=== PATIENT | female | born 1935 | race Caucasian/White ===

== ENCOUNTER 2017-01-29 13:10 | Emergency (ER) | payer OTHER ==
[2017-01-29] MEDS ORDERED: ASPIRIN PO STA (13:13)
--- NOTE | 2017-01-29 13:23 | EKG Report ---
Test Performed on : 01/29/2017 1:16:37 PM Test Reason : CHEST PAIN Blood Pressure : / mmHG Vent. Rate : 068 BPM Atrial Rate : 068 BPM P-R Int : 204 ms QRS Dur : 102 ms QT Int : 442 ms P-R-T Axes : 059 -14 063 degrees QTc Int : 469 ms Normal sinus rhythm. Normal ECG No previous ECGs available Unconfirmed Result
[2017-01-29 13:32] LABS: MANUAL DIFF NEEDED? NO
[2017-01-29 13:33] LABS: BASO% 0.5 % (0.0-0.8); EOS% 1.7 % (0.0-10.0); HEMATOCRIT 31.3 % (37.0-47.0); HEMOGLOBIN 10.3 g/dL (12.0-16.0); IMM GRAN# 0.02 X1000 (0.0-0.04); IMM GRAN% 0.3 % (0.0-0.5); LYMPH# 1.73 X1000 (1.2-3.4); LYMPH% 29.7 % (20.5-51.1); MCH 30.7 PG (27-31); MCHC 32.9 g/dL (33-37); MCV 93.4 FL (81-99); MONO# 0.44 X1000 (0.11-0.59); MONO% 7.5 % (1.7-9.3); MPV 8.9 FL (7.4-10.4); NEUT% 60.3 % (42.2-75.2); PLT 176 X1000 (130-400); RBC 3.35 XMIL (4.2-5.4)
[2017-01-29] MEDS ORDERED: NS 1,000 ML IV ONE (13:40)
--- NOTE | 2017-01-29 13:40 | PROVIDER DOCUMENTATION ---
HPI-General Adult - General Chief Complaint: B/P Problems Stated Complaint: pain between shoulder blades Time Seen by Provider: 01/29/17 13:12 Source: patient Allergies/Adverse Reactions: Patient Allergies Allergy/AdvReac Type Severity Reaction Status Date / Time No Known Allergies Allergy Verified 01/29/17 13:25 - History of Present Illness -Gen Adult Nature of Presenting Problems: patient is a 81 y/o F that presents to the ER with pain in between shoulders that began [employer]. patient was at [employer] playing [employer]s when pain hit. Patient had no chest pain, shortness of breath, n/v, or diaphoresis. patient's systolic BP was in the 80s on EMS arrival Location of Pain/Injury: reports: back (between shoulder blades) Pain Radiation: reports: no radiation Quality of Pain: reports: aching Severity: reports: moderate Onset/Duration: reports: abrupt, just prior to arrival Timing: reports: gone now Context/Activities at Onset: reports: light activity Modifying Factors: improves with: nothing Associated Symptoms: reports: back/neck pain. denies: arm pain, chest pain, cough, diarrhea, dizziness, fever/chills, genitourinary problems, heartburn, nausea, shortness of breath, vomiting Similar Symptoms Previously?: No Recently seen or treated by another doctor?: No Review of Systems - Adult - REVIEW OF SYSTEMS - ADULT Constitutional: denies: chills, fever Eyes: denies: decreased vision, blurred vision, double vision Ears, Nose, Mouth & Throat: denies: ear pain, sinus problem, nose pain, throat pain, throat swelling Cardiovascular: denies: chest pain, orthopnea, palpitations, syncope Respiratory: denies: cough, shortness of breath, wheezing Gastrointestinal: denies: abdominal pain, diarrhea, nausea, vomiting Genitourinary: reports: no symptoms reported Musculoskeletal: reports: back pain. denies: joint pain, neck pain Integumentary: reports: no symptoms reported Neurological: reports: no symptoms reported Psychiatric: reports: no symptoms reported Endocrine: reports: no symptoms reported Hematologic/Lymphatic: reports: no symptoms reported Allergic/Immunologic: reports: no symptoms reported All Other Systems: Reviewed and Negative Past History - Adult - PAST MEDICAL HISTORY-ADULT Review of Records: reports: Old Records Reviewed, Nursing Assessment Review, Medications Reviewed Cardiovascular: reports: HTN Neurological: reports: Seizures/Epilepsy Endocrine/Immune: reports: thyroid disorder - PRIOR SURGERIES/PROCEDURES Surgical/Procedure History: reports: hysterectomy, other (thyroid) - IMMUNIZATION STATUS Childhood Immunizations: See Nurse Assessment Flu Vaccine: See Nurse Assessment - FAMILY HISTORY Family History: reviewed, not pertinent - SOCIAL HISTORY Smoking: cigarettes, less than 1 pack/day Living Situation: family Physical Exam-General - PHYSICAL EXAM-ADULT Initial Vital Signs Reviewed: Yes - CONSTITUTIONAL General Appearance: alert, no apparent distress - EYES Eyes: PERRL/EOMI, pink conjunctivae - HEAD, EARS, NOSE, MOUTH & THROAT HENMT: normocephalic/atraumatic, moist mucous membranes, normal ENT inspection - NECK Neck: non-tender, full range of motion, normal inspection - RESPIRATORY Respiratory: chest non-tender, lungs clear, normal breath sounds, no respiratory distress, no accessory muscle use - CARDIOVASCULAR Cardiovascular: regular rate, rhythm, no edema, no murmur - GASTROINTESTINAL (ABDOMEN) Abdominal Exam: normal bowel sounds, non tender, soft - MUSCULOSKELETAL Back Exam: no CVA tenderness, no vertebral tenderness Extremity: normal range of motion, non-tender, normal inspection, no pedal edema , no calf tenderness, normal capillary refill, pelvis stable - SKIN Integumentary: normal color, warm/dry - NEUROLOGIC Neurologic: grossly normal, no motor/sensory deficits - PSYCHIATRIC Psych/Mental Status: normal mood/affect, normal thought content, normal thought process, oriented x 3 Progress - PLAN OF CARE/RESULTS Progress/Plan/Lab Results: plan of care-cardiac work up 1540-second set of cardiacs ordered Vital Signs Temp Pulse Resp BP Pulse Ox 01/29/17 15:21 62 17 165/81 98 01/29/17 14:55 61 22 136/74 98 01/29/17 14:11 68 18 139/74 99 01/29/17 13:21 98.7 F 71 18 153/106 98 No Known Allergies Allergy (Verified 01/29/17 13:25) Laboratory 01/29/17 01/29/17 01/29/17 15:50 15:50 15:12 WBC RBC Hgb Hct MCV MCH MCHC RDW Std Deviation Plt Count MPV Immature Gran % (Auto) Neut % (Auto) Lymph % (Auto) [place] % (Auto) Eos % (Auto) Baso % (Auto) Immature Gran # (Auto) Neut # (Auto) Lymph # (Auto) [place] # (Auto) Eos # (Auto) Baso # (Auto) PT INR APTT (Factor Assay) D-Dimer Sodium Potassium Chloride Carbon Dioxide Anion Gap BUN Creatinine Estimated GFR/1.73 m2 BUN/Creatinine Ratio Glucose Calculated Osmolality Calcium Magnesium Total Bilirubin AST ALT Alkaline Phosphatase Creatine Kinase 45 Troponin T < 0.010 Gap-G-Lylvuarrrhp Pept Total Protein Albumin Globulin Albumin/Globulin Ratio Urine Source CLEAN CATCH Urine Color YELLOW Urine Clarity CLEAR Urine pH 5.0 Ur Specific [place] 1.015 Urine Protein TRACE A Urine Ketones NEGATIVE Urine Blood NEGATIVE Urine Nitrite NEGATIVE Urine Bilirubin NEGATIVE Urine Urobilinogen NORMAL Urine Microscopic RBC <10 Urine WBC 2+ A Urine Microscopic WBC 10-20 A Ur Epithelial Cells >10 A Urine Glucose NEGATIVE 01/29/17 01/29/17 01/29/17 13:30 13:30 13:30 WBC 5.83 RBC 3.35 L Hgb 10.3 L Hct 31.3 L MCV 93.4 MCH 30.7 MCHC 32.9 L RDW Std Deviation 12.3 Plt Count 176 MPV 8.9 Immature Gran % (Auto) 0.3 Neut % (Auto) 60.3 Lymph % (Auto) 29.7 [place] % (Auto) 7.5 Eos % (Auto) 1.7 Baso % (Auto) 0.5 Immature Gran # (Auto) 0.02 Neut # (Auto) 3.51 Lymph # (Auto) 1.73 [place] # (Auto) 0.44 Eos # (Auto) 0.10 Baso # (Auto) 0.03 PT 13.6 INR 1.01 APTT (Factor Assay) 30.1 D-Dimer 0.27 Sodium Potassium Chloride Carbon Dioxide Anion Gap BUN Creatinine Estimated GFR/1.73 m2 BUN/Creatinine Ratio Glucose Calculated Osmolality Calcium Magnesium Total Bilirubin AST ALT Alkaline Phosphatase Creatine Kinase Troponin T Ukf-B-Wapttpjvaxw Pept 194 Total Protein Albumin Globulin Albumin/Globulin Ratio Urine Source Urine Color Urine Clarity Urine pH Ur Specific [place] Urine Protein Urine Ketones Urine Blood Urine Nitrite Urine Bilirubin Urine Urobilinogen Urine Microscopic RBC Urine WBC Urine Microscopic WBC Ur Epithelial Cells Urine Glucose 01/29/17 01/29/17 13:30 13:30 WBC RBC Hgb Hct MCV MCH MCHC RDW Std Deviation Plt Count MPV Immature Gran % (Auto) Neut % (Auto) Lymph % (Auto) [place] % (Auto) Eos % (Auto) Baso % (Auto) Immature Gran # (Auto) Neut # (Auto) Lymph # (Auto) [place] # (Auto) Eos # (Auto) Baso # (Auto) PT INR APTT (Factor Assay) D-Dimer Sodium 135 L Potassium 3.8 Chloride 98 Carbon Dioxide 24 L Anion Gap 13 BUN 16 Creatinine 1.3 H Estimated GFR/1.73 m2 40 BUN/Creatinine Ratio 12 Glucose 204 H Calculated Osmolality 277 Calcium 8.7 L Magnesium 2.0 Total Bilirubin 0.20 AST 19 ALT 13 Alkaline Phosphatase 159 H Creatine Kinase 47 Troponin T < 0.010 Isv-W-Avxwwowqhkx Pept Total Protein 6.7 Albumin 4.0 Globulin 3.0 Albumin/Globulin Ratio 1.0 Urine Source Urine Color Urine Clarity Urine pH Ur Specific [place] Urine Protein Urine Ketones Urine Blood Urine Nitrite Urine Bilirubin Urine Urobilinogen Urine Microscopic RBC Urine WBC Urine Microscopic WBC Ur Epithelial Cells Urine Glucose Orders Category Date Time Status Cardiac Monitoring DIRECTED Care 01/29/17 13:13 Active Oxygen Therapy- ED Nursing DIRECTED Care 01/29/17 13:13 Active Saline Loc NOW Care 01/29/17 13:13 Active CHEST-2 VIEWS [RAD] Stat Exams 01/29/17 13:13 Draft CBC WITH ELECTRONIC DIFF [HEME] Stat Lab 01/29/17 13:30 Completed CK PROFILE [SP CHEM] Stat Lab 01/29/17 13:30 Completed CK PROFILE [SP CHEM] Stat Lab 01/29/17 15:50 Completed COMPREHENSIVE METABOLIC PANEL [CHEM] Stat Lab 01/29/17 13:30 Completed D-DIMER PL [COAG] Stat Lab 01/29/17 13:30 Completed MAGNESIUM [CHEM] Stat Lab 01/29/17 13:30 Completed PRO B-NATRIURETIC PEPTIDE Stat Lab 01/29/17 13:30 Completed PROTIME WITH INR PL [COAG] Stat Lab 01/29/17 13:[address] [COAG] Stat Lab 01/29/17 13:30 Completed TROPONIN T Stat Lab 01/29/17 13:30 Completed TROPONIN T Stat Lab 01/29/17 15:50 Completed UA [URINALYSIS PL W/POSS RFLX CULT] [URINALYSIS] Stat Lab 01/29/17 15:12 Completed 0.9% Sodium Chloride Inj [Ns] 1,000 ml Med 01/29/17 13:40 Active IV 250 mls/hr Aspirin Med 01/29/17 13:13 Discontinued 325 mg PO STAT STA CefTRIAXONE 1 GM/NS [Rocephin 1 gm/Ns] 50 ml Med 01/29/17 16:32 Active IV NOW EKG [EKG] Stat Ther 01/29/17 13:13 Draft pt will be d/c home f/u with pcp, rx given, pt was clinically stable, understood instructions and results - EKG 1 Time of EKG reading by physician:: 13:16 EKG Read and Signed by:: Neema Terrell EKG Interpretation (*Must complete 3 of following elements*): Normal Rate: 68 Rhythm: NSR [place]: normal QRS: normal LA Interval: normal ST Wave: normal - XRAY 1 XRAY Study: Chest Impression: Abnormal XRAY Interpretation: boderline prominent heart Departure - Departure Time of Disposition Order: 16:34 DIAGNOSIS: UTI (urinary tract infection) Qualifiers: Urinary tract infection type: acute cystitis Hematuria presence: without hematuria Qualified Code(s): N30.00 - Acute cystitis without hematuria Disposition: HOME 01 Certified Medical Emergency: Emergent Condition: Stable Additional Instructions: ED Follow Up Instructions: You have been treated by a care provider in the Emergency Department. These instructions are being provided to you so you can have an understanding of how to care for yourself upon discharge. Upon discharge from the Emergency Department, you are responsible for making arrangements for follow-up care by a physician of your choice. Take all prescribed medications as directed. Return to the Emergency Department immediately for any new or worsening symptoms. You may call the Physician Referral phone number at [phone] to obtain a list of Physicians who are taking new patients. Referrals: Marjorie Terry MD [Primary Care Provider] - Call for Appoint. 1-2days Instructions: Urinary Tract Infection, Sbtw-xi-Ewgq Attestation - Scribe Verification/Attestation Scribe:: Parviz Arevalo Acting as Scribe for:: Neema Terrell Scribe documention review:: This chart was documented by a scribe and accurately reflects the service the provider performed and the decisions made by the provider. Physician Attestation - Physician Attestation I, the provider, attest to the following statement:: Neema Terrell Physician documentation Attestation:: This documentation recorded by the scribe accurately reflects the service I personally performed and the decisions made by me.
[2017-01-29 13:54] LABS: CALCIUM 8.7 mg/dL (8.8-10.2); POTASSIUM 3.8 mmol/L (3.5-5.1); TOTAL BILIRUBIN 0.2 mg/dL (0.20-1.00); TOTAL PROTEIN 6.7 g/dL (6.3-8.3)
[2017-01-29 14:01] LABS: INR 1.01 (0.86-1.15); PROTIME 13.6 Seconds (12.1-15.5)
[2017-01-29 14:02] LABS: PTT PL 30.1 Seconds (22.6-43.9)
--- NOTE | 2017-01-29 14:23 | Diag Imaging Result Document ---
PROCEDURE NAME: CHEST-2 VIEWS - 01/29/2017 PA AND LATERAL RADIOGRAPHS OF THE CHEST: COMPARISON: 12/12/2010. FINDINGS: The lungs are grossly clear. There is no definite pleural fluid collection. The heart is ulvbdwhtkr-ue-vxuwms prominent, stable. Central vasculature is unremarkable. IMPRESSION: Btxeejsgxg-zg-xmvemz prominent heart. No definite acute pathology.
[2017-01-29 15:24] LABS: URINE CULTURE PL NEEDED? NO; URINE SOURCE CLEAN CATCH
[2017-01-29 15:35] LABS: BILIRUBIN URINE NEGATIVE (NEGATIVE); BLOOD URINE NEGATIVE (NEGATIVE); CLARITY CLEAR (CLEAR); COLOR YELLOW; GLUCOSE URINE NEGATIVE (NEGATIVE); LEUKOCYTES URINE 2+ (NEGATIVE); NITRITE URINE NEGATIVE (NEGATIVE); PROTEIN URINE TRACE mg/dL (NEGATIVE); SP GRAVITY URINE 1.015; UROBILINOGEN URINE NORMAL
[2017-01-29 15:45] LABS: URINE EPITHELIAL CELLS >10 /HPF (<10); URINE RBC <10 /HPF (<10)
[2017-01-29] MEDS ORDERED: ROCEPHIN 1 GM/NS 50 ML IV ONE (16:32)
[2017-01-29] MEDS ORDERED: LEVAQUIN PO ONE (16:52)
[2017-01-29 17:39] VITALS: BP 145/80
== END 2017-01-29 17:38 | disposition home or self-care (01) ==
LOC: P.ED 13:10
DX: N30.00 Acute cystitis without hematuria (principal); M54.6 Pain in thoracic spine; I10 Essential (primary) hypertension; F17.210 Nicotine dependence, cigarettes, uncomplicated
CPT/HCPCS: 71020; 80053; 81001; 82550; 83735; 83880; 84484; 85025; 85379; 85610; 85730; 93005; J0696; J7030

== ENCOUNTER 2017-08-18 16:25 | Observation (INO) ==
[2017-08-18] MEDS ORDERED: APRESOLINE IV ONE (17:46)
[2017-08-18] MEDS ORDERED: APRESOLINE ONE (17:53)
[2017-08-18 18:01] LABS: INR 1.02; PROTIME 10.7 Seconds (9.2-11.7)
[2017-08-18 18:14] LABS: ALBUMIN 4.6 g/dL (3.5-5.0); BASO% 0.2 % (0.0-0.8); HEMATOCRIT 35.3 % (37.0-47.0); HEMOGLOBIN 11.7 g/dL (12.0-16.0); IMM GRAN# 0.02 X1000 (0.0-0.04); IMM GRAN% 0.2 % (0.0-0.5); LYMPH# 0.62 X1000 (1.2-3.4); LYMPH% 6.7 % (20.5-51.1); MAGNESIUM 2.1 mg/dL (1.5-2.7); MANUAL DIFF NEEDED? YES; MCHC 33.1 g/dL (33-37); MCV 93.4 FL (81-99); MONO# 0.17 X1000 (0.11-0.59); MONO% 1.8 % (1.7-9.3); MPV 9.7 FL (7.4-10.4); NEUT% 91.1 % (42.2-75.2); PLT 203 X1000 (130-400); POTASSIUM 4.9 mmol/L (3.5-5.1); RBC 3.78 XMIL (4.2-5.4); TOTAL BILIRUBIN 0.16 mg/dL (0.20-1.00); TOTAL PROTEIN 7.8 g/dL (6.3-8.3)
--- NOTE | 2017-08-18 18:21 | Diag Imaging Result Doc PS360 ---
CHEST-PORTABLE - 08/18/2017 INDICATION: stridor intraoperatively TECHNIQUE: COMPARISON: 01/29/2017 FINDINGS: Lung volumes are moderately low with bibasilar crowding. No focal infiltrates, pneumothorax, or pleural effusion. Heart size is top normal. IMPRESSION: Low lung volumes but otherwise no acute disease. Electronically signed by Sonu Santos 08/18/2017 6:19 PM
[2017-08-18 18:44] LABS: LYMPHS 2 % (21-51)
--- NOTE | 2017-08-18 18:56 | HISTORY AND PHYSICAL ---
ENT PHYSICIAN: Dr. Noah Cheema ANESTHESIOLOGIST: Dr. Perez PRIMARY CARE PROVIDER: Dr. Terry CHIEF COMPLAINT: Intraoperative stridor. HISTORY OF PRESENT ILLNESS: Mrs. Schmitz is an 82-year-old, female, with a history of seizures, hypertension and thyroid cancer, who comes to our facility today after she had intraoperative stridor during [facility]. Per Dr. Perez, the anesthesiologist, the patient, after she was extubated, had stridor which was broken with racemic epi, and the patient has been stable since. 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 She came to the ICU at our facility for close observation. She is currently saturating 100% on open face mask, and she states that her throat is a little bit sore, but her airway is clear and she is oxygenating well. Her blood pressure, however, is noted to be 229/87, which we are treating with IV hydralazine. She denies any other complaints at this time. She is going to be admitted for observation status. PAST MEDICAL HISTORY: 1. Seizure disorder. 2. Hypertension. 3. Thyroid cancer, status post thyroidectomy. 4. Arthritis. 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 SOCIAL HISTORY: No tobacco, alcohol, or drug use. Daughter is at the bedside. FAMILY HISTORY: Noncontributory. REVIEW OF SYSTEMS: Fourteen-point review of systems obtained and found to be negative, with the exception of the HPI. HOME MEDICATIONS: Currently being compiled. ALLERGIES: No known drug allergies. PHYSICAL EXAMINATION: VITAL SIGNS: Blood pressure is 229/86, heart rate 82, respiratory rate 16, O2 saturation 100% on 50% open face mask. GENERAL: This is an elderly, female, lying in hospital bed. No acute distress. HEENT: Head is normocephalic. She has an incision with sutures clean, dry and intact to the right nostril and left year. Otherwise, head is atraumatic. Pupils are equal, round, reactive to light. Oral mucosa is moist. Trachea is midline. There is no stridor. CHEST: Clear to auscultation bilaterally. CARDIOVASCULAR: Regular rate and rhythm. S1 and S2 are noted. GASTROINTESTINAL: Soft, nondistended, nontender. Bowel sounds positive. EXTREMITIES: No edema, clubbing, or cyanosis. Pulses palpable bilaterally. DIAGNOSTIC DATA: Pending. ASSESSMENT/PLAN: 1. Intraoperative stridor: We will continue with DuoNeb and IV steroids. We will also have racemic epi at the bedside, if necessary. We will monitor her airway status closely. 2. Hypertension: We will add IV hydralazine now and continue any antihypertensives and check labs. Chest x-ray is also included in that. 3. Seizure disorder. The patient is on Dilantin. Will continue that and check levels. 4. Hypothyroidism. We will check TSH. Continue her home medications. 5. Further recommendations to follow. We will add DVT prophylaxis with SCDs and TEDs, given her recent surgery. Patient seen and examined by me face to face, all the lab work, vitals signs were reviewed, Patient has a past medical history of thyroidectomy and vocal cord lesion, at the moment of my physical exam she was feeling better, probably I will send her home in the morning, I agree with the assessment and plan, Manuel Israel MD Dictated by VALENTIN Meehan for Manuel Holden MD cc: VALENTIN Meehan MD Benjamin W. Light, MD Adnan A. Seljuki, MD [facility]
[2017-08-18] MEDS ORDERED: DUONEB (A & A) INH PRN (21:16)
[2017-08-18] MEDS: DUONEB (A & A) INH SCH (22:50)
[2017-08-19] MEDS: DUONEB (A & A) INH SCH ×2 (03:40→07:49)
[2017-08-19] MEDS ORDERED: NORVASC PO SCH (09:00)
[2017-08-19] MEDS ORDERED: DILANTIN PO SCH (09:00)
[2017-08-19] MEDS ORDERED: ZYRTEC PO SCH (09:00)
[2017-08-19] MEDS ORDERED: LIPITOR PO SCH (09:00)
[2017-08-19] MEDS ORDERED: FERROUS SULFATE PO SCH (09:00)
[2017-08-19] MEDS ORDERED: VITAMIN D PO SCH (09:00)
[2017-08-19] MEDS ORDERED: COZAAR PO SCH (09:00)
[2017-08-19] MEDS ORDERED: MIRALAX PO SCH (09:00)
[2017-08-19] MEDS ORDERED: SYNTHROID PO SCH (09:00)
[2017-08-19] MEDS ORDERED: NEURONTIN PO SCH (09:00)
[2017-08-19 09:33] VITALS: BP 145/52
--- NOTE | 2017-08-19 10:11 | DISCHARGE SUMMARY ---
ADMISSION DATE: 08/18/2017 DISCHARGE DATE: Patient seen and examined by me, lab work and vital signs were reviewed. I restarted her medications today in the morning. This patient was hypertensive but after using her home medications this patient's blood pressures normalized. She is feeling fine. She is not having any kind of respiratory distress. She is tolerating food. She is completely asymptomatic at this moment. Physical exam is benign. Vital signs are stable. Heart rate 74, blood pressure 143/51, oxygen saturation 94% on room air. Respiratory rate 19. Given her current presentation this patient will be discharged. I agree with the assessment and plan. She should go to the surgical center today after discharge before going home. They want to follow her up and probably do another procedure. At the moment of discharge, this patient was in a stable medical condition. cc: Manuel Holden MD
--- NOTE | 2017-08-20 07:45 | DISCHARGE SUMMARY ---
ADMISSION DATE: 08/18/2017 DISCHARGE DATE: 08/19/2017 CONSULTATIONS: None. PERTINENT PROCEDURES: Chest x-ray impression: Lobe lung volume but otherwise no acute disease. DISCHARGE DIAGNOSES: 1. Intraoperative stridor, resolved. 2. Hypertension. Continue home medications. 3. Seizure disorder. Continue Dilantin. 4. Hypothyroidism. Continue home medications. HOSPITAL COURSE: Ms. Schmitz is an 82-year-old, female with a past medical history of seizures, hypertension, and thyroid cancer, status post thyroidectomy. 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 The patient was given racemic epinephrine at the surgery center which resolved the stridor. Then patient was transferred to our ICU. Upon admission, the patient was stable. Patient's labs, her white blood cell count was 9.21, hemoglobin. 11.7, hematocrit 35.3, platelets 203,000. Sodium 142, potassium 4.9, BUN 13, creatinine 1.1, glucose 140. Her phenytoin level was 9.7. Today, the patient is alert and oriented. No stridor. She is tolerating p.o. The patient is stable and she will be discharged home with self care. DISCHARGE VITAL SIGNS: Heart rate 74, blood pressure 143/51, 94% on room air, respiratory rate is 19. DISCHARGE DIET: Regular. DISCHARGE MEDICATIONS: Norvasc 10 mg p.o. daily, atorvastatin calcium 20 mg p.o. daily, cetirizine 10 mg p.o. daily, vitamin D3 1000 units p.o. daily, ferrous sulfate 325 mg p.o. daily, gabapentin 100 mg p.o. b.i.d., Synthroid 150 mcg p.o. daily, losartan potassium 100 mg p.o. daily, Dilantin 100 mg p.o. t.i.d., MiraLAX. 17 g p.o. daily. FOLLOWUP: The patient will need to follow up with ENT, Dr. Cheema, and also follow up with her primary care physician, Dr. Terry. Time discharging this patient 35 minutes Dictated by VALENTIN Ritter for Manuel Holden MD cc: MD Noah Burt MD Adnan A. Seljuki, MD [facility]
== END 2017-08-19 10:22 | disposition home or self-care (01) ==
LOC: DIRADM → ICU 16:25
PROVIDERS: ATTEND Internal Medicine